=== PATIENT | female | born 1955 ===

== ENCOUNTER 2022-11-09 12:32 | Inpatient (IN) | payer OTHER ==
[~2022-11-09] VITALS: Ht 175.3 cm; Wt 0.5 kg
[~2022-11-09 12:32] MED LIST: PTE NO RECUERDA
[2022-11-10] MEDS ORDERED: RESTORIL30 M1 PO (13:41)
[2022-11-10] MEDS ORDERED: ZESTRIL20 MG PO (13:42)
[2022-11-10] MEDS ORDERED: CLONAZEPAM1 MG PO (13:42)
[2022-11-10] MEDS ORDERED: TOPROL XL100 M1 PO (13:42)
[2022-11-10] MEDS ORDERED: GABAPENTIN100 M2 PO (13:42)
[2022-11-10] MEDS ORDERED: PROZAC20 MG PO (13:43)
[2022-11-18] MEDS ORDERED: INTEGRA PLUS C1 EACH PO (07:24)
[2022-11-18] MEDS ORDERED: OXYC1TAB9 PO (07:24)
[2022-11-18] MEDS ORDERED: Septra Ds Tablet PO (07:24)
[2022-11-18] MEDS ORDERED: XARELTO10 MG PO (07:24)
[2022-11-18] MEDS ORDERED: IPRAT-ALBUT 0.5-3 ML IH (12:46)
[2022-11-18] MEDS ORDERED: PROAIR RESPICL90 MCG IH (12:46)
== END 2022-11-18 17:20 | disposition home or self-care (01) | DRG 470 ==
LOC: O/R 11-15 06:11 → SURH 11-15 09:15
PROVIDERS: ADMIT Orthopaedic Surgery Sports Medicine; ATTEND Orthopaedic Surgery Sports Medicine
PROC: 0SRC0J9 Replacement of Right Knee Joint with Synthetic Substitute, Cemented, Open Approach (ICD-10-PCS; principal; 2022-11-15 13:00)
PROC: 30233N1 Transfusion of Nonautologous Red Blood Cells into Peripheral Vein, Percutaneous Approach (ICD-10-PCS; 2022-11-18)
DX: M17.11 Unilateral primary osteoarthritis, right knee (principal); D64.9 Anemia, unspecified; Z96.651 Presence of right artificial knee joint; I10 Essential (primary) hypertension; Z20.822 Contact with and (suspected) exposure to COVID-19